=== PATIENT | female | born 1945 | race Caucasian/White ===

== ENCOUNTER 2022-11-20 12:32 | Emergency (ER) | payer OTHER ==
[~2022-11-20] VITALS: Ht 172.7 cm; Wt 68.0 kg
[2022-11-20 12:55] VITALS: BP_SYST 145; PULSE 77; RESP 20; TEMP 98.1; O2SAT 98
[2022-11-20 14:13] LABS: BASOPHILS % (AUTO) 0.5 % (0.0-2.0); HEMATOCRIT 38.3 % (36-48); HEMOGLOBIN 12.6 g/dL (12.0-16.0); LYMPHOCYTES # (AUTO) 1.7 K/uL (1.0-5.5); LYMPHOCYTES % (AUTO) 33.8 % (20.5-51.5); MEAN CORPUSCULAR HEMOGLOBIN 31 pg (27-31); MEAN CORPUSCULAR HGB CONC 33 % (32-36); MEAN CORPUSCULAR VOLUME 93 fL (79.0-98.0); MONOCYTES % (AUTO) 19.3 % (1.7-9.3); NEUTROPHILS # (AUTO) 2.3 K/uL (1.8-7.7); NEUTROPHILS % (AUTO) 45.4 % (40.0-70.0); PLATELET COUNT (AUTO) 218 K/uL (130-430); RED BLOOD CELL COUNT(AUTO) 4.12 MIL/uL (4.2-6.2); RED CELL DISTRIBUTION WIDTH 14.6 % (9.0-15.0)
[2022-11-20 14:27] LABS: ANION GAP 8 (5-15); CALCIUM 8.3 mg/dL (8.4-11.0); CARBON DIOXIDE 27 mmol/L (23-29); CHLORIDE 103 mmol/L (98-107); CREATININE 0.65 mg/dL (0.55-1.30); GLUCOSE 95 mg/dL (74-106); POTASSIUM 4.2 mmol/L (3.5-5.1); SODIUM SERUM 138 mmol/L (136-145); UREA NITROGEN, BLOOD 13 mg/dL (8-21)
[2022-11-20 14:31] LABS: ALANINE AMINOTRANSFERASE 19 U/L (12-78); ALBUMIN 3.5 g/dL (3.4-4.8); AMYLASE 54 U/L (0-100); ASPARTATE AMINOTRANSFERASE 16 U/L (10-37); LIPASE 157 U/L (73-393); TOTAL BILIRUBIN 0.4 mg/dL (0.0-1.0); TOTAL PROTEIN, SERUM 7.3 g/dL (6.4-8.3)
[2022-11-20 14:56] LABS: INR 0.9 (0.8-1.2); PROTHROMBIN TIME 9.7 SECS (9.5-12.5)
[2022-11-20] MEDS ORDERED: NACL 0.9% 1,000 ML IV ONE (15:00)
[2022-11-20 15:15] VITALS: BP_SYST 121; PULSE 68; RESP 19; TEMP 98.1; O2SAT 95
== END 2022-11-20 15:15 | disposition home or self-care (01) ==
LOC: SED 12:32
DX: K92.2 Gastrointestinal hemorrhage, unspecified (principal); R53.1 Weakness; Z85.038 Personal history of other malignant neoplasm of large intestine; Z79.899 Other long term (current) drug therapy
CPT/HCPCS: 36415; 76376; 80053; 82150; 83605; 83690; 85025; 85610-TC; 85730-TC; 86886; 86900; 86901; 99284

== ENCOUNTER 2023-01-02 08:00 | Outpatient (CLI) | payer OTHER ==
[~2023-01-02] VITALS: Ht 165.1 cm; Wt 61.2 kg
[2023-01-02] MEDS ORDERED: GABAPENTIN 300 MG CAPSULE PO ONE (11:15)
[2023-01-02] MEDS ORDERED: ACETAMINOPHEN 500 MG TABLET PO ONE (11:15)
[2023-01-02] MEDS ORDERED: CELECOXIB 200 MG CAPSULE PO ONE (11:15)
[2023-01-02] MEDS ORDERED: oxyCODONE HCL 10 MG TAB.ER.12H PO ONE ×2 (11:15→11:17)
[2023-01-02] MEDS ORDERED: ACETAMINOPHEN 500 MG TABLET ONE (11:17)
[2023-01-02] MEDS ORDERED: GABAPENTIN 300 MG CAPSULE ONE (11:18)
[2023-01-02] MEDS ORDERED: CELECOXIB 200 MG CAPSULE ONE (11:18)
[2023-01-02] MEDS ORDERED: CEFAZOLIN SOD 2 GM in D5W 50 ML IV ONE (12:00)
[2023-01-02] MEDS ORDERED: metroNIDAZOLE 500 mg/NS 100 ML PREMIX IV ONE (12:00)
[2023-01-02 12:30] VITALS: BP_SYST 141; PULSE 65; RESP 20; TEMP 98.4; O2SAT 98
== END 2023-01-02 16:00 | disposition home or self-care (01) ==
LOC: SLB 08:00 → SMU 10:56 → UNDOADMIN 10:56 → UNDODISIN 12:25 → EDSTATUS 12:30 → SLB 16:00
PROVIDERS: ATTEND Surgery
DX: Z01.818 Encounter for other preprocedural examination (principal); C19 Malignant neoplasm of rectosigmoid junction; D12.2 Benign neoplasm of ascending colon
CPT/HCPCS: 87081; 93005; J0690; J3490; J7060

== ENCOUNTER 2023-02-28 16:15 | Emergency (ER) | payer OTHER ==
[~2023-02-28] VITALS: Ht 165.1 cm; Wt 56.7 kg
[2023-02-28 16:46] VITALS: BP_SYST 171; PULSE 73; RESP 16; TEMP 98.8; O2SAT 97
[2023-02-28 17:49] LABS: ANION GAP 9 (5-15); CALCIUM 8.3 mg/dL (8.4-11.0); CARBON DIOXIDE 27 mmol/L (23-29); CHLORIDE 107 mmol/L (98-107); CREATININE 0.62 mg/dL (0.55-1.30); GLUCOSE 82 mg/dL (74-106); POTASSIUM 3.7 mmol/L (3.5-5.1); SODIUM SERUM 143 mmol/L (136-145); UREA NITROGEN, BLOOD 11 mg/dL (8-21)
[2023-02-28 17:52] LABS: BASOPHILS # (AUTO) 0.1 K/uL (0.0-0.2); BASOPHILS % (AUTO) 1.8 % (0.0-2.0); EOSINOPHILS # (AUTO) 0.1 K/uL (0.0-0.4); EOSINOPHILS % (AUTO) 1.8 % (0.0-4.0); HEMATOCRIT 33.1 % (36-48); HEMOGLOBIN 11.2 g/dL (12.0-16.0); LYMPHOCYTES # (AUTO) 1.8 K/uL (1.0-5.5); LYMPHOCYTES % (AUTO) 36.4 % (20.5-51.5); MEAN CORPUSCULAR HEMOGLOBIN 31 pg (27-31); MEAN CORPUSCULAR HGB CONC 34 % (32-36); MEAN CORPUSCULAR VOLUME 91 fL (79.0-98.0); MONOCYTES # (AUTO) 0.5 K/uL (0.0-1.0); MONOCYTES % (AUTO) 9.4 % (1.7-9.3); NEUTROPHILS # (AUTO) 2.6 K/uL (1.8-7.7); NEUTROPHILS % (AUTO) 50.6 % (40.0-70.0); PLATELET COUNT (AUTO) 260 K/uL (130-430); RED BLOOD CELL COUNT(AUTO) 3.63 MIL/uL (4.2-6.2); RED CELL DISTRIBUTION WIDTH 13.9 % (9.0-15.0); WHITE BLOOD COUNT (AUTO) 5.1 K/uL (4.8-10.8)
[2023-02-28] MEDS ORDERED: LISI-652 PO (20:08)
[2023-02-28] MEDS ORDERED: cloNIDine HCL 0.1 MG TABLET PO ONE (20:15)
[2023-02-28 22:32] VITALS: BP_SYST 171; PULSE 60; RESP 17; TEMP 97.9; O2SAT 100
== END 2023-02-28 22:32 | disposition home or self-care (01) ==
LOC: SED 16:15
DX: R60.0 Localized edema (principal); R03.0 Elevated blood-pressure reading, without diagnosis of hypertension; R79.89 Other specified abnormal findings of blood chemistry; Z85.038 Personal history of other malignant neoplasm of large intestine; Z79.899 Other long term (current) drug therapy
CPT/HCPCS: 36415; 80048; 84484; 85025; 85379; 93005; 93971; 99284